=== PATIENT | male | born 1945 | race Caucasian/White ===

== ENCOUNTER 2019-08-18 10:28 | Outpatient (CLI) | payer MEDICARE, OTHER, SELFPAY ==
[2019-08-18 13:04] LABS: Blood Urea Nitrogen 10 mg/dL (9-20); Calcium 10.4 mg/dL (8.4-10.2); Carbon Dioxide 33 mmol/L (22-30); Chloride 101 mmol/L (98-107); Estimated Glomerular Filt Rate 60; Glucose 103 mg/dL (75-110); Potassium 4.3 mmol/L (3.4-5.0); Sodium 140 mmol/L (137-145)
[2019-08-18 16:54] LABS: Hemoglobin A1C 5.6 % (<5.7)
== END 2019-08-18 10:29 | disposition home or self-care (01) ==
PROVIDERS: Anesthesiology; PCP Internal Medicine; Visit Provider Urology
DX: N52.9 Male erectile dysfunction, unspecified (principal); Z79.899 Other long term (current) drug therapy
CPT/HCPCS: 36415; 80048; 83036; 87086

== ENCOUNTER 2019-08-30 00:25 | Outpatient (CLI) | payer MEDICARE, OTHER, SELFPAY ==
[2019-08-30 20:03] LABS: SARS-CoV-2 RNA PCR Negative
== END 2019-08-30 00:26 | disposition home or self-care (01) ==
LOC: ANHCOVIDDT 00:27
PROVIDERS: PCP Internal Medicine; Visit Provider Urology
DX: Z01.812 Encounter for preprocedural laboratory examination (principal); Z11.59 Encounter for screening for other viral diseases
CPT/HCPCS: 87635; C9803; U0003

== ENCOUNTER 2019-09-01 01:38 | Day surgery (SDC) | payer MEDICARE, OTHER, SELFPAY ==
[2019-08-18 11:32] VITALS: BP 136/70; PULSE 66; RESP 20; TEMP 37; O2SAT 98; BMI 36.3
[2019-09-01] VITALS (11 sets, daily range): BP systolic 110–154; BP diastolic 63–89; PULSE 73–92; RESP 15–24; TEMP 36.3–37.6; O2SAT 92–99
[2019-09-01] MEDS: LACTATED RINGERS 1,000 ML 30 ML IV CONT ×2 (11:50→16:45)
[2019-09-01] MEDS: GENTAMICIN SULFATE INJ 450 MG in DEXTROSE 5% 100 ML 97.3 MG IVPB (12:11)
--- NOTE | 2019-09-01 12:44 | WPDANESEPPF ---
Anes - Initial Pre Proc Eval Procedure: Operation Date: 09/01/19 13:30 Proposed Procedures p Insertion Inflatable Penile Prosthesis, - Sandra Helms MD s Circumcision - Sandra Helms MD Date/Time: 09/01/19 12:44 Surgeon: Sandra Helms MD Pre Op Diagnosis: ED N52.9 Patient Data Age: 73 Gender: M Height: 5 ft 10 in Weight: 113 kg Last Vital Signs Temp 37.6 C 09/01/19 12:24 Pulse 73 09/01/19 12:24 Resp 20 08/18/19 11:32 BP 110/63 09/01/19 12:24 Pulse Ox 97 09/01/19 12:24 Allergies Allergy/AdvReac Type Severity Reaction Status Date / Time Iodinated Contrast Media Allergy Anaphylaxis Verified 08/18/19 11:18 Penicillins AdvReac Hives Verified 08/18/19 11:18 Home Medications Medication Instructions Recorded Confirmed Type acetaminophen [Tylenol] 650 mg PO BID 08/18/19 08/18/19 History apixaban [Eliquis] 2.5 mg PO BID 08/18/19 09/01/19 History atorvastatin 80 mg PO DAILY 08/18/19 08/18/19 History cyanocobalamin (vitamin B-12) 500 mcg PO DAILY 08/18/19 08/18/19 History diltiazem HCl [Cartia XT] 180 mg PO DAILY 08/18/19 09/01/19 History ezetimibe 10 mg PO DAILY 08/18/19 08/18/19 History folic acid 1 mg PO DAILY 08/18/19 08/18/19 History furosemide 40 mg PO DAILY 08/18/19 08/18/19 History nortriptyline 40 mg PO HS 08/18/19 08/18/19 History potassium chloride 20 meq PO BID 08/18/19 08/18/19 History testosterone cypionate 200 mg IM USEASDIRECTD 08/18/19 08/18/19 History Patient hx anesthesia problems: none Family hx anesthesia problems: none PMFSH Past Medical History Medical History (Updated 09/01/19 @ 12:48 by Jason Mcmanus MD) Chronic a-fib Obesity DURGA (obstructive sleep apnea) Surgical History Surgical History (Updated 09/01/19 @ 12:49 by Jason Mcmanus MD) History of appendectomy History of total knee arthroplasty Anes - Eval Final PreProcedure Day of Procedure 09/01/19 12:44 Patient weight: obese Heart: regular rate and rhythm Lungs: clear to auscultation Airway: Mallampati scale class II Neurological: alert and oriented Last oral intake: >/= 8 hours ASA classification: III Emergent: no Anesthetic plan: proceed Anesthesia type and monitoring: general LMA and standard monitoring Informed Consent: The patient's anesthetic plan and its attendant risks and benefits were discussed with the patient/family/POA. Questions were solicited and answers provided to the satisfaction of the patient/family/POA.
--- NOTE | 2019-09-01 13:30 | WPDHPUPDATE1 ---
History and Physical Update Update Date/Time: 09/01/19 13:30 History and Physical has been reviewed, including an updated exam of the patient. There are NO changes in the patient's condition. Risks, benefits, and alternatives have been discussed and questions answered. Patient agrees to proceed with procedure.
[2019-09-01] MEDS: NEOMYCIN/POLYMYXIN/BACITR/HC OINT 15 GM TUBE 1 APPLIC TOPICAL (16:36)
[2019-09-01] MEDS: POTASSIUM CHLORIDE 20 MEQ TABLET.ER PO (20:35)
[2019-09-01] MEDS: NORTRIPTYLINE HCL 10 MG CAPSULE 40 MG PO (20:35)
[2019-09-01] MEDS: DOCUSATE SODIUM 100 MG CAPSULE PO (20:36)
--- NOTE | 2019-09-01 22:23 | OP_ITS ---
DATE OF PROCEDURE: 09/01/2019 PREOPERATIVE DIAGNOSES: 1. Erectile dysfunction. 2. Phimosis. PROCEDURE PERFORMED: 1. Insertion of ambicor (2-piece) inflatable penile implant. 2. Artificial erection with pharmacologic agent. 3. Circumcision. DESCRIPTION OF PROCEDURE: Informed consent was obtained. The patient was taken to the operating room, was given preoperative IV antibiotics with vancomycin and gentamicin. Additionally, the patient had been taking oral antibiotics at home. The patient was prepped with Betadine scrub and paint followed by ChloraPrep. Drapes were placed, again ChloraPrep was placed. The Simental catheter was inserted with clear urine. We used dilute lidocaine to perform an artificial erection revealing a symmetric erection with coverage due to his redundant preputial skin and morbid obesity. We placed a stay suture through the glans for retraction. We then circumferentially excised the preputial skin and it was sent as specimen. We then degloved the ventral side of the phallus taking great care not to injure the urethra. We then placed stay sutures through the corpora bilaterally with 2-0 PDS suture. A corporotomy was made on the right side. We then dilated with Spangler dilators and irrigated, there was no injury. We measured the corpora for 13 cm proximal and 6.5 cm distal. We then performed identical procedure on contralateral side. Irrigation revealed no injury. We placed dilators proximally and there was no crossover. We elected to place an kamari core 14 mm implant 16 cm with 3.5 cm rear tips. The device was inserted by using the Berto tool. We then inflated and deflated that nicely. We closed the corpora with our pre-placed sutures. We then irrigated it copiously. We made a subdartos pouch and placed the pump in the anterior scrotum, it sat very nicely. We then covered dissection of the corpora with a 3-0 Vicryl suture. We then brought the circumcision together with the dartos layer of 3-0 Vicryl and skin suture with interrupted 3-0 chromic sutures and running 4-0 chromic horizontal mattress pledgeted sutures. A dressing was placed. The patient was awakened, taken to the recovery room in stable condition. IV FLUIDS: Per Anesthesia. COMPLICATIONS: None. ESTIMATED BLOOD LOSS: 200 mL. FOLLOWUP: The patient will remain in hospital overnight. He will be discharged home tomorrow after a void trial. D I MT: Danni MANZANARES
[2019-09-02] VITALS: BP 118/80; PULSE 80; RESP 18; TEMP 37.1; O2SAT 100
[2019-09-02 04:00] VITALS: BP 123/60; PULSE 85; RESP 18; TEMP 36.6; O2SAT 98
--- NOTE | 2019-09-02 07:29 | WPDANESPN ---
Anes - Prog Note Post-Op Date/Time: 09/02/19 07:29 Cardiovascular status: normal Respiratory status: normal Airway patency: baseline Mental status: baseline Post-Op hydration status: normal Vital Signs: Last Vital Signs Temp 36.6 C 09/02/19 04:00 Pulse 85 09/02/19 04:00 Resp 18 09/02/19 04:00 BP 123/60 09/02/19 04:00 Pulse Ox 98 09/02/19 04:00 I/O: Intake & Output 09/01/19 09/01/19 09/02/19 15:59 23:59 07:59 Intake Total 300 300 Output Total 150 800 Balance 150 -500 Post-procedural complaints: none Patient Feedback: Patient satisfied with anesthetic care.
[2019-09-02 08:00] VITALS: O2SAT 96
[2019-09-02] MEDS: FUROSEMIDE 40 MG TABLET PO (08:46)
[2019-09-02] MEDS: FOLIC ACID 1 MG TABLET PO (08:46)
[2019-09-02] MEDS: dilTIAZem HCL CD 180 MG CAP.ER.24H PO (08:46)
[2019-09-02] MEDS: DOCUSATE SODIUM 100 MG CAPSULE PO (08:46)
[2019-09-02] MEDS: ATORVASTATIN 40 MG TABLET 80 MG PO (08:46)
[2019-09-02] MEDS: POTASSIUM CHLORIDE 20 MEQ TABLET.ER PO (08:46)
[2019-09-02] MEDS: EZETIMIBE 10 MG TABLET PO (08:46)
[2019-09-02] MEDS: ENOXAPARIN 30 MG/0.3 ML SYRINGE SUB-Q (08:47)
--- NOTE | 2019-09-02 10:41 | WPDUROPN2 ---
Progress Note: A&P Assessment and Plan (1) Erectile dysfunction: Code(s): N52.9 - Male erectile dysfunction, unspecified Status: Acute Assessment and Plan: Doing well post operatively. Menendez removed on exam today, dressing removed as well. Patient tolerated well, no difficulty removing menendez. Push fluids, when patient urinates and recieves last dose of antibiotics he may go home. Subjective Subjective Date/Time Seen: 09/02/19 10:41 POD #1 Penile Prosthesis Review of Systems Cardiovascular: Cardiovascular: Denies chest pain Respiratory: Respiratory: Reports no additional respiratory complaints Gastrointestinal: Gastrointestinal: Denies abdominal pain Genitourinary: Genitourinary: Denies hematuria, Reports genital pain and Denies testicular pain Exam Resp: Effort & Inspection: normal respiratory effort Cardio: Rate: regular rate GI: Inspection: other (Excoriation RLQ covered with clear tegaderm. Mild bloody drainage present.) GI Palp: Yes Soft to palpation and No Tenderness to palpation present (GI) : Male General Exam: Yes edema (mild) and Yes tenderness Penis: Yes circumcised, Yes ecchymosis, Yes edematous and No erythematous Meatus: meatus normal and No Blood at meatus present Scrotum: ecchymosis Urinary Catheter: Urinary Catheter: patent and draining and urine clear Extrem: General: no edema Objective Data Vital Signs Vital Signs: Vital Signs - 24 hr 09/01/19 12:24 09/01/19 16:45 09/01/19 17:00 Temperature 99.6 F 98.2 F Pulse Rate 73 82 84 Respiratory Rate 15 20 Blood Pressure 110/63 121/88 154/89 H Pulse Oximetry 97 99 99 09/01/19 17:15 09/01/19 17:30 09/01/19 17:44 Temperature Pulse Rate 78 85 92 Respiratory Rate 24 H 22 H 22 H Blood Pressure 126/84 134/72 136/78 Pulse Oximetry 99 93 92 09/01/19 18:00 09/01/19 18:09 09/01/19 18:15 Temperature 97.8 F 98.0 F Pulse Rate 92 76 Respiratory Rate 16 16 Blood Pressure 137/78 140/80 Pulse Oximetry 92 96 92 09/01/19 18:45 09/01/19 19:33 09/02/19 00:00 Temperature 97.4 F L 98.4 F 98.7 F Pulse Rate 91 75 80 Respiratory Rate 18 18 18 Blood Pressure 138/68 127/76 118/80 Pulse Oximetry 92 94 100 09/02/19 04:00 09/02/19 08:00 Temperature 97.9 F Pulse Rate 85 Respiratory Rate 18 Blood Pressure 123/60 Pulse Oximetry 98 96 Intake/Output Intake/Output: Intake & Output 08/30/19 08/31/19 09/01/19 09/02/19 23:59 23:59 23:59 23:59 Intake Total 300 300 Output Total 150 800 Balance 150 -500 Meds/Results Medications: Active Medications Generic Name Dose Route Start Last Admin Trade Name Freq PRN Reason Stop Dose Admin Hydrocodone Bitart/Acetaminophen 1 tab 09/01/19 17:48 09/02/19 00:00 [place] 5-325 Mg PO 1 tab Q4H PRN Administration Pain Rated 1-6 Atorvastatin Calcium 80 mg 09/02/19 09:00 09/02/19 08:46 Lipitor PO 80 mg DAILY ASHLEY Administration Diltiazem HCl 180 mg 09/02/19 09:00 09/02/19 08:46 Cardizem Cd PO 180 mg DAILY ASHLEY Administration Docusate Sodium 100 mg 09/01/19 21:00 09/02/19 08:46 Colace Capsule PO 100 mg BID ASHLEY Administration Ezetimibe 10 mg 09/02/19 09:00 09/02/19 08:46 Zetia PO 10 mg DAILY ASHLEY Administration Enoxaparin Sodium 30 mg 09/02/19 09:00 09/02/19 08:47 Lovenox SUB-Q 30 mg DAILY ASHLEY Administration Folic Acid 1 mg 09/02/19 09:00 09/02/19 08:46 Folic Acid PO 1 mg DAILY ASHLEY Administration Furosemide 40 mg 09/02/19 09:00 09/02/19 08:46 Lasix Tablet PO 40 mg DAILY ASHLEY Administration Vancomycin HCl 1,000 mg in 250 mls @ 250 mls/hr 09/02/19 00:00 09/01/19 23:56 Vancomycin 1,000 Mg/D5w 250 Ml IVPB 09/02/19 12:59 250 mls/hr Q12H ASHLEY Administration Gentamicin Sulfate/Sodium Chloride 80 mg in 50 mls @ 100 mls/hr 09/02/19 12:00 Gentamicin 80mg/Sod Chl 50 Ml IVPB 09/02/19 12:29 ONCE ONE Levofloxacin 500 mg 09/02/19 09:00 09/02/19 08:46 L
[2019-09-02] MEDS: GENTAMICIN 80MG/SOD CHL 50 ML 80 MG/50 ML BAG 100 MG IVPB (12:07)
[2019-09-02 14:00] VITALS: BP 125/61; PULSE 87; RESP 20; TEMP 37.1; O2SAT 98
== END 2019-09-02 16:00 | disposition home or self-care (01) ==
LOC: ANHSURGERY 11:12 → ANH3MEDSUR 09-02 10:50
PROVIDERS: PCP Internal Medicine; Visit Provider Urology
PROC: (CPT 54405; principal; 2019-09-01 13:30)
PROC: (CPT 54161; 2019-09-01 13:30)
DX: N52.9 Male erectile dysfunction, unspecified (principal); N47.1 Phimosis; N48.1 Balanitis; I48.20 Chronic atrial fibrillation, unspecified; Z79.01 Long term (current) use of anticoagulants; G47.33 Obstructive sleep apnea (adult) (pediatric); E66.9 Obesity, unspecified; Z68.35 Body mass index [BMI] 35.0-35.9, adult
CPT/HCPCS: 54405; 54235; 88304; A9270; J1580; J1650; J2405; J2704; J3010; J3370; J7120